=== PATIENT | female | born 1990 | race Caucasian/White ===

== ENCOUNTER → 2016-09-04 | Outpatient (CLI) | payer BC ==
[2016-09-04 16:40] LABS: ABSOLUTE BASOPHILS # (AUTO) 0.1 10^3/uL (0.0-0.2); ABSOLUTE EOSINOPHILS # (AUTO) 0.1 10^3/uL (0.0-0.6); ABSOLUTE LYMPHOCYTES (AUTO) 1.8 10^3/uL (0.5-4.7); ABSOLUTE MONOCYTES (AUTO) 0.5 10^3/uL (0.1-1.4); ABSOLUTE NEUT (AUTO) 12.7 10^3/uL (1.7-8.2); BASOPHILS % (AUTO) 0.4 % (0-2); EOSINOPHILS % (AUTO) 0.5 % (0-6); HEMATOCRIT 40.5 % (36.0-47.0); HEMOGLOBIN 13.7 g/dL (12.0-15.5); HGB HCT DIFFERENCE 0.6; LYMPHOCYTES % (AUTO) 12.2 % (13-45); MEAN CORPUSCULAR HEMOGLOBIN 29.3 pg (27.0-33.4); MEAN CORPUSCULAR VOLUME 86 fl (80-97); RED BLOOD COUNT 4.68 10^6/uL (3.72-5.28); RED CELL DISTRIBUTION WIDTH 12.6 % (11.5-14.0); SEGMENTED NEUTROPHILS % (AUTO) 83.9 % (42-78); WHITE BLOOD COUNT 15.1 10^3/uL (4.0-10.5)
[2016-09-04 16:54] LABS: HIV (1 AND 2) ANTIBODY NEGATIVE (NEGATIVE)
[2016-09-06 10:38] LABS: HEPATITIS C VIRUS AB <0.1 s/co ratio (0.0-0.9)
[2016-09-08 18:36] LABS: CHLAMYDIA PREQUOT NAA Negative (Negative)
[2016-09-09 07:13] LABS: GONOCOCCUS PREQUOT (CYTO) NAA Negative (Negative)
[2016-09-09 16:38] LABS: HGB A 96.3 % (94.0-98.0); HGB A2 2.1 % (0.7-3.1); HGB SOLUBILITY RESULT Negative (Negative)
== END ==
LOC: OD 14:29
PROVIDERS: ATTEND Midwife
DX: Z34.81 Encounter for supervision of other normal pregnancy, first trimester (principal); Z13.29 Encounter for screening for other suspected endocrine disorder; Z13.0 Encounter for screening for diseases of the blood and blood-forming organs and certain disorders involving the immune mechanism; Z11.3 Encounter for screening for infections with a predominantly sexual mode of transmission; Z12.4 Encounter for screening for malignant neoplasm of cervix
CPT/HCPCS: 36415; 83020; 84443; 85025; 86592; 86701; 86704; 86705; 86706; 86707; 86762; 86803; 86850; 86900; 86901; 87086; 87340; 87350; 87491; 87591; 88142

== ENCOUNTER → 2016-10-16 | Outpatient (CLI) | payer BC ==
[2016-10-16 14:28] LABS: THYROID STIMULATING HORMONE 1.91 uIU/mL (0.47-4.68)
[2016-10-18 14:40] LABS: DSR (BY AGE) 1 IN 898 (.); DSR (SECOND TRIMESTER) 1 IN 5535 (.); HCG MOM 1 1.03 (.); HCG VALUE 1 34012 mIU/mL (.); INSULIN DEPENDENT DIABETES No (.); OSBR RISK (1 IN) 1309 (.); T18RISK Not increased (.); UE3 MOM AFP 1.02 (.); UE3 VALUE AFP 0.99 ng/mL (.)
[2016-10-19 07:19] LABS: GESTATIONAL AGE BASED ON. EDD (.)
== END ==
LOC: OD 11:25
PROVIDERS: ATTEND Midwife
DX: Z36 Encounter for antenatal screening of mother (principal); Z13.29 Encounter for screening for other suspected endocrine disorder
CPT/HCPCS: 36415; 82105; 82677; 84439; 84443; 84702; 86336

== ENCOUNTER → 2017-01-09 | Outpatient (CLI) | payer BC ==
[2017-01-09 10:22] LABS: ADD HIVPANEL? NO; HIV (1 AND 2) ANTIBODY NEGATIVE (NEGATIVE)
== END ==
LOC: OD 08:19
PROVIDERS: ATTEND Midwife
DX: Z34.83 Encounter for supervision of other normal pregnancy, third trimester (principal); Z11.59 Encounter for screening for other viral diseases; Z11.3 Encounter for screening for infections with a predominantly sexual mode of transmission; Z11.4 Encounter for screening for human immunodeficiency virus [HIV]
CPT/HCPCS: 36415; 86592; 86701

== ENCOUNTER 2017-03-21 00:12 | Inpatient (IN) | payer BC ==
[2017-03-21] MEDS ORDERED: MISOPROSTOL 0.2 MG TABLET ONE (00:38)
[2017-03-21] MEDS ORDERED: LIDOCAINE 1% INJ-PF (10 MG/ML) 30 ML SDV ONE (00:38)
[2017-03-21] MEDS ORDERED: EPHEDRINE SULFATE INJ 50 MG/1 ML AMPULE ONE (00:38)
[2017-03-21] MEDS ORDERED: FENTANYL/BUPIVACAINE/NS/PF 200 MCG/100 ML RTUINJ EPI ONE (00:38)
[2017-03-21] MEDS ORDERED: BUPIVACAINE HCL 0.25 % INJ/PF (2.5 MG/1 ML) 30 ML VIAL ONE (00:39)
[2017-03-21] MEDS ORDERED: OXYTOCIN/NORMAL SALINE 20 UNIT/1,000 ML RTUINJ ONE (00:39)
[2017-03-21] MEDS ORDERED: PENICILLIN G-K 5 MILLION UNIT VIAL ONE (00:39)
[2017-03-21] MEDS ORDERED: RINGERS SOLUTION,LACTATED 1,000 ML IV ONE (00:40)
[2017-03-21] MEDS ORDERED: PENICILLIN G POTASSIUM 5,000,000 UNIT in DEXTROSE 5%-WATER 100 ML IV ONE (00:40)
[2017-03-21] MEDS ORDERED: RINGERS SOLUTION,LACTATED 1,000 ML IV PRN (00:40)
[2017-03-21 01:18] LABS: APPEARANCE,URINE SLIGHTLY-CLOUDY; BILIRUBIN,URINE NEGATIVE (NEGATIVE); GLUCOSE, URINE NEGATIVE (NEGATIVE); KETONES,URINE NEGATIVE (NEGATIVE); LEUKOCYTE ESTERASE,URINE TRACE (NEGATIVE); NITRITE,URINE NEGATIVE (NEGATIVE); PROTEIN,URINE NEGATIVE (NEGATIVE); URINE SPECIFIC GRAVITY 1.016; UROBILINOGEN,URINE NEGATIVE mg/dL (<2.0)
[2017-03-21 01:19] LABS: ABSOLUTE BASOPHILS # (AUTO) 0.1 10^3/uL (0.0-0.2); ABSOLUTE MONOCYTES (AUTO) 0.7 10^3/uL (0.1-1.4); ABSOLUTE NEUT (AUTO) 10.7 10^3/uL (1.7-8.2); BASOPHILS % (AUTO) 0.8 % (0-2); EOSINOPHILS % (AUTO) 0.3 % (0-6); HEMATOCRIT 34.2 % (36.0-47.0); HEMOGLOBIN 11.2 g/dL (12.0-15.5); HGB HCT DIFFERENCE -0.6; LYMPHOCYTES % (AUTO) 20.5 % (13-45); MEAN CORPUSCULAR HEMOGLOBIN 24.4 pg (27.0-33.4); MEAN CORPUSCULAR HGB CONC 32.6 g/dL (32.0-36.0); MEAN CORPUSCULAR VOLUME 75 fl (80-97); MONOCYTES % (AUTO) 4.6 % (3-13); RED BLOOD COUNT 4.57 10^6/uL (3.72-5.28); SEGMENTED NEUTROPHILS % (AUTO) 73.8 % (42-78); WHITE BLOOD COUNT 14.4 10^3/uL (4.0-10.5)
[2017-03-21 02:47] LABS: URINE BARBITURATES SCREEN NEGATIVE; URINE METHADONE SCREEN NEGATIVE; URINE OPIATES LOW NEGATIVE; URINE PHENCYCLIDINE SCREEN NEGATIVE
--- NOTE | 2017-03-21 03:09 | L&D Progress Notes ---
PROGRESS NOTES Datetime Report Generated by CPN: 03/21/2017 03:08 PROGRESS NOTE Impression: Normal Progression of Labor Procedures: Artificial ROM; Sterile Vag Exam Plan: Continue Present Management Informed Consent Obtained: Vaginal Delivery Vital Signs : Reviewed; Within Normal Limits Comment: Pt feeling some rectal pressure 9.5/100/0 bbow AROM clear s/p dose # 1 pcn Anticipate VAGINAL EXAM Dilatation: 9 Dilatation: 5 Effacement: 100 Effacement: 100 Station: 0 Station: -1 Contractions: 2-4 Contractions: 2-4 MEMBRANES Membranes: Ruptured Membranes: Intact Amniotic Fluid Color: Clear FETUS A FHR - Baseline: 135 Monitoring: External US Variability: Moderate 6-25bpm Accelerations: 15X15 Decelerations: None FHR Category: Category I Estimated Weight (gm): 3800 Presentation: Vertex SIGNATURE SIGNATURE: [id number] Assignment: Ambrose Jacobs DO Signature: with User ID: [email or web address] : with User ID: Jennifer
[2017-03-21] MEDS ORDERED: OXYTOCIN/NORMAL SALINE 1,000 ML IV PRN (04:07)
[2017-03-21] MEDS ORDERED: MEASLES,MUMPS&RUBELLA VACC/PF 0.5 ML VIAL SUBCUT PRN (04:07)
[2017-03-21] MEDS ORDERED: DIPH/PERTUSS(ACELL)/TETANUS VAC/PF 0.5 ML SYR (>=10YO) IM PRN (04:07)
[2017-03-21] MEDS ORDERED: DIBUCAINE 1% OINTMENT 28 GM TP PRN (04:07)
[2017-03-21] MEDS ORDERED: ACETAMINOPHEN WITH CODEINE #3 TABLET PO PRN (04:07)
[2017-03-21] MEDS ORDERED: ZOLPIDEM TARTRATE 5 MG TABLET PO PRN (04:07)
[2017-03-21] MEDS ORDERED: BENZOCAINE/MENTHOL AEROSOL SPRAY 56 ML TOP PRN (04:07)
[2017-03-21] MEDS ORDERED: PENICILLIN G POTASSIUM 2,500,000 UNIT in DEXTROSE 5%-WATER 50 ML IV SCH (05:00)
--- NOTE | 2017-03-21 05:27 | Delivery Summary ---
Del Sum A-C Datetime Report Generated by CPN: 03/21/2017 05:26 DELIVERY PERSONNEL DELIVERY PERSONNEL: [id number] Delivery Doctor:: Juju Samuels CNM Labor and Delivery Nurse:: Deanne Vera RNliner helper Nurse:: Eli Baez RN Transmission Inspector/COOLING TOWER TECHNICIAN: Sendy Ortega CNA MATERNAL INFORMATION Delivery Anesthesia: Epidural Medications After Delivery: Pitocin Drip 20 Units/1000ml NSS Estimated Blood Loss (ml): 300 Maternal Complications: None Provider Comments: of viable male over intact perineum, head delivered without difficulty, shoulders and body followed with ease. Infant with spontaneous cry and respirations to maternal abdoemn, cord clamped X 2, cut free by pts after 2 minute delay. Spontaneous delivery of placenta via lizzy mechanism, appears intact, 3 VC. Vagina and perineum inspected, no lacerations noted, hemostasis acheived with external fundal massage and IV pitocin, mother and in stable conditon, routine pp care. LABOR SUMMARY EDC: 03/29/2017 00:00 No. Babies in Womb: 1 Attempted: No Labor Anesthesia: Epidural LABOR INFORMATION Reason for Induction: Not Applicable Onset of Labor: 03/21/2017 00:30 Complete Dilatation: 03/21/2017 03:36 Oxytocin: N/A Group B Beta Strep: positive Antibiotics # of Doses: 1 Antibiotics Time of Last Dose: 005 Name of Antibiotic Given: PCN Steroids Given: None Reason Steroids Not Administered: Not Applicable MEMBRANES Membranes Rupture Method: Artificial Rupture of Membranes: 03/21/2017 03:00 Length of Rupture (hr): 0.93 Amniotic Fluid Color: Clear Amniotic Fluid Amount: Small STAGES OF LABOR Stage 1 hr: 3 Stage 1 min: 6 Stage 2 hr: 0 Stage 2 min: 20 Stage 3 hr: 0 Stage 3 min: 4 Total Time in Labor hr: 3 Total Time in Labor min: 30 VAGINAL DELIVERY Episiotomy: None Laceration Extension: N/A Laceration Type: None Laceration Repair: Not Applicable Laceration Repair Note: n/a Sponge Count Correct: Vaginal Sweep Performed Sharps Count Correct: Yes CSECTION DELIVERY Primary Indication: N/A Secondary Indication: N/A CSection Incidence: N/A Labor: N/A Elective: N/A CSection Incision: N/A BABY A INFORMATION Delivery Date/Time: 03/21/2017 03:56 Method of Delivery: Vaginal Born in Route : No : N/A Forceps: N/A Vacuum Extraction: N/A Shoulder Dystocia : No PRESENTATION/POSITION BABY A Presentation: Cephalic Cephalic Presentation: Vertex Vertex Position: Right Occipital Anterior Breech Presentation: N/A PLACENTA INFORMATION BABY A Placenta Delivery Time : 03/21/2017 04:00 Placenta Method of Delivery: Spontaneous Placenta Status: Delivered SCORES BABY A Heart Rate 1 min: >100 bpm Resp Effort 1 min: Good Cry Reflex Irritability 1 min: Cough or Sneeze or Pulls Away Muscle Tone 1 min: Active Motion Color 1 min: Body [place], Extremities Blue Resuscitation Effort 1 min: N/A SCORE 1 MIN: 9 Heart Rate 5 min: >100 bpm Resp Effort 5 min: Good Cry Reflex Irritability 5 min: Cough or Sneeze or Pulls Away Muscle Tone 5 min: Active Motion Color 5 min: Body [place], Extremities Blue Resuscitation Effort 5 min: N/A SCORE 5 MIN: 9 INFANT INFORMATION BABY A Gestational Age at Delivery: 38.6 Gestational Status: Early Term- 37- 38.6 Weeks Infant Outcome : Liveborn Condition : Stable Sex: Male IDENTIFICATION BABY A Verification Date/Time: 03/21/2017 04:06 ID Band Number: [id number] Mother's Name Verified: Yes RN Verifying : Camilo Farfan RN Additional Verifying Personnel: [employer] RN WEIGHT/LENGTH BABY A Infant Birthweight (gm): 3250 Weight (lb): 7 Weight (oz): 3 Infant Length (in): 19.00 Length (cm): 48.26 CORD INFORMATION BABY A No. Cord Vessels: 3 Nuchal Cord : N/A Nuchal Cord- Other: R compound hand Cord Blood Taken: Yes-For Storage (Mom's Blood type +) Suction: Mouth; Nose ASSESSMENT BABY A Complications: None Physical Findings at Delivery: Within Normal Limits Infant Respirations: Appears Normal Skin to Skin: Yes Skin to Skin Time (min): 30 Counterintelligence Analyst/ALS Called : No Care By: Becky Baez RN Transferred To: Remains with Mother BABY B INFORMATION : N/A SIGNATURES Assignment: Ambrose Jacobs DO Signature: with User ID: Jennifer : with User ID: Jennifer
[2017-03-21] MEDS: IBUPROFEN 800 MG TABLET PO SCH ×3 (05:32→21:53)
[2017-03-21] MEDS ORDERED: IBUPROFEN 800 MG TABLET ONE (05:47)
--- NOTE | 2017-03-21 06:28 | Admission Physical ---
Datetime Report Generated by CPN: 03/21/2017 06:28 CURRENT ADMISSION Hx Assessment: The History has been Reviewed and is Current Chief Complaint: Uterine Contractions Indication for Induction: Not Applicable Admit Plan: Admit to Unit; Initiate Labor Protocol ALLERGIES Medication Allergies: No Medication Allergies: No Known Allergies (03/21/2017) Medication Allergies: No Known Allergies (02/28/2015) Latex: No Latex Allergies Food Allergies: none Environmental Allergies: seasonal OBSTETRICAL HISTORY EDC: 03/29/2017 00:00 : 4 Para: 1 Term: 1 : 0 SAB: 1 IAB: 1 Ectopic: 0 Livin Cesareans: 0 VBACs: 0 Multiple Births: 0 Gestational Diabetes: No Rh Sensitization: No Incompetent Cervix: No CANDI: No Infertility: No ART Treatment: No Uterine Anomaly: No IUGR: No Hx Previous C/S: No Macrosomia: No Hx Loss/Stillborn: No PIH: No Hx : No Placenta Previa/Abruption: No Depression/PP Depression: Yes PTL/PROM: No Post Hemorrhage: No Obstetrical History Comments: G1- 2010 elective AB; D_C G2- 2013 G3- SAB, blood transfusion G4- current SEE RECORDS Alcohol: No Marijuana : No Cocaine: No Other Illicit Drugs: No Cigarettes: Never Smoker. 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 Surgery: No Heart Disease: No Hosp/Surgery: No Autoimmune Disorder: No Anesthetic Complications: No Kidney Disease: No Abnormal Pap Smear: No Neuro/Epilepsy: No Psychiatric Disorders: Yes Other Medical Diseases: No Hepatitis/Liver Disease: No Significant Family History: No Varicosities/Phlebitis: No Trauma/Violence : No Thyroid Dysfunction: No Medical History Comments: surgery- cyst removal from under tongue age 8; wisdom teeth 2008; D_C hx anxiety/ depression blood transfusion with SAB cold sores- valtrex INFECTIOUS HISTORY Gonorrhea: No Genital Herpes: No Chlamydia: No Tuberculosis: No Syphilis: No Hepatitis: No HIV/AIDS Exposure: No Rash or Viral Illness: No HPV: No PHYSICAL EXAM General: Normal HEENT: Normal Neurologic: Normal Thyroid: Deferred Heart: Normal Lungs: Normal Breast: Normal Back: Normal Abdomen: Normal Genitourinary Exam: Normal Extremities: Normal DTRs: Normal Pelvic Type: Adequate Physical Exam Comments: pelvis proven 7 lbs 2oz Vital Signs: Reviewed VAGINAL EXAM Dilatation: 9 Dilatation: 5 Effacement: 100 Effacement: 100 Station: 0 Station: -1 Contraction Comments: 2-4 Contraction Comments: 2-4 MEMBRANES Membranes: Ruptured Membranes: Intact Amniotic Fluid Color: Clear FETUS A EGA: 38.6 Monitoring: External US FHR- Baseline: 140 Variability: Moderate 6-25bpm Accelerations: 15X15 Decelerations: None FHR Category: Category I Estimated Weight (gm): 3800 Presentation: Vertex Admit Comment: Labor, denies leaking, bleeding, states active baby. Admit to L _ D GBS+ , pcn May have epidural prn Anticipate PLANS FOR LABOR AND DELIVERY Labor and Delivery: None Pain Management: Epidural Feeding Preference: Breast Benefit of Breast Feed Discussed: Yes Circumcision: Yes INFORMED CONSENT Informed Consent Obtained: Vaginal Delivery Assignment: Ambrose Jacobs DO Signature: with User ID: Jennifer : with User ID: Jennifer
[2017-03-21] MEDS: FERROUS SULFATE 325 MG TABLET PO SCH ×2 (09:39→18:26)
[2017-03-21] MEDS: DOCUSATE SODIUM 100 MG CAPSULE PO SCH ×2 (09:39→18:27)
[2017-03-21] MEDS: SENNOSIDES/DOCUSATE 8.6-50 MG 1 EACH TABLET PO SCH (09:39)
[2017-03-21] MEDS: PRENATAL VITAMIN W-O CA NO5/FE FUMARATE/FA CAPSULE PO SCH (09:39)
--- NOTE | 2017-03-21 09:42 | PDOC PROGRESS REPORT ---
Subjective-OB Subjective: Post Delivery Day: 26 year old. Denies any needs at this time Holding baby, doing well, scant bleeding, voiding, eating well Physical Exam (OB) Vital Signs: Temp Pulse Resp BP Pulse Ox 98.6 F 103 H 20 139/74 H 99 03/21/17 06:22 03/21/17 06:22 03/21/17 06:22 03/21/17 06:22 03/21/17 06:22 Intake & Output 03/20/17 03/21/17 03/22/17 06:59 06:59 06:59 Weight 89.6 kg - PIH/Pre-Eclampsia DTR's: 2 + Clonus: Negative Headache: Absent Epigastric Pain: No Visual Changes: No - Lochia Lochia Amount: Small 10-25 ml Lochia Color: Rubra/Red - Abdomen Description: Soft, Round Hernia Present: No Fundal Description: Firm Fundal Height: u/u - u/2 Objective-Diagnostic Laboratory: 03/21/17 00:58 03/21/17 03/21/17 03/21/17 00:25 00:58 00:58 WBC 14.4 H RBC 4.57 Hgb 11.2 L Hct 34.2 L MCV 75 L MCH 24.4 L MCHC 32.6 RDW 15.0 H Plt Count 257 Seg Neutrophils % 73.8 Lymphocytes % 20.5 Monocytes % 4.6 Eosinophils % 0.3 Basophils % 0.8 Absolute Neutrophils 10.7 H Absolute Lymphocytes 3.0 Absolute Monocytes 0.7 Absolute Eosinophils 0.0 Absolute Basophils 0.1 Urine Color YELLOW Urine Appearance SLIGHTLY-CLOUDY Urine pH 6.0 Ur Specific [place] 1.016 Urine Protein NEGATIVE Urine Glucose (UA) NEGATIVE Urine Ketones NEGATIVE Urine Blood NEGATIVE Urine Nitrite NEGATIVE Ur Leukocyte Esterase TRACE H Blood Type A POSITIVE Antibody Screen NEGATIVE Assessment and Plan(PN) - Assessment and Plan (1) Vaginal delivery Is this a current diagnosis for this admission?: Yes - Time Spent with Patient Time with patient: Less than 15 minutes Medications reviewed and adjusted accordingly: Yes - Disposition Anticipated Discharge: Home Within: within 48 hours
[2017-03-21] MEDS: ACETAMINOPHEN WITH CODEINE #3 TABLET PO PRN (21:52)
[2017-03-22] MEDS: IBUPROFEN 800 MG TABLET PO SCH ×3 (05:48→21:49)
[2017-03-22 06:58] LABS: HEMATOCRIT 31.2 % (36.0-47.0); HEMOGLOBIN 10.2 g/dL (12.0-15.5); HGB HCT DIFFERENCE -0.6; MEAN CORPUSCULAR HEMOGLOBIN 24.7 pg (27.0-33.4); MEAN CORPUSCULAR HGB CONC 32.7 g/dL (32.0-36.0); MEAN CORPUSCULAR VOLUME 76 fl (80-97); RED BLOOD COUNT 4.12 10^6/uL (3.72-5.28); RED CELL DISTRIBUTION WIDTH 15.3 % (11.5-14.0); WHITE BLOOD COUNT 15.7 10^3/uL (4.0-10.5)
--- NOTE | 2017-03-22 09:47 | PDOC PROGRESS REPORT ---
Subjective-OB Subjective: Post Delivery Day: 26 year old. Denies any needs at this time Doing well, no c/o, breast feeding, voiding, scant lochia Physical Exam (OB) Vital Signs: Temp Pulse Resp BP Pulse Ox 97.9 F 89 16 109/59 L 99 03/22/17 08:08 03/22/17 08:08 03/22/17 08:08 03/22/17 08:08 03/22/17 08:08 Intake & Output 03/21/17 03/22/17 03/23/17 06:59 06:59 06:59 Intake Total 100 Balance 100 Weight 89.6 kg - PIH/Pre-Eclampsia DTR's: 2 + Clonus: Negative Headache: Absent Epigastric Pain: No Visual Changes: No - Lochia Lochia Amount: Small 10-25 ml Lochia Color: Rubra/Red - Abdomen Description: Soft, Round Hernia Present: No Fundal Description: Firm Fundal Height: u/u - u/2 Objective-Diagnostic Laboratory: 03/22/17 06:46 03/22/17 06:46 WBC 15.7 H RBC 4.12 Hgb 10.2 L Hct 31.2 L MCV 76 L MCH 24.7 L MCHC 32.7 RDW 15.3 H Plt Count 224 Assessment and Plan(PN) - Assessment and Plan (1) Vaginal delivery Is this a current diagnosis for this admission?: Yes - Time Spent with Patient Time with patient: Less than 15 minutes Medications reviewed and adjusted accordingly: Yes - Disposition Anticipated Discharge: Home Within: within 24 hours
[2017-03-22] MEDS: DOCUSATE SODIUM 100 MG CAPSULE PO SCH ×2 (10:19→17:11)
[2017-03-22] MEDS: FERROUS SULFATE 325 MG TABLET PO SCH ×2 (10:19→17:11)
[2017-03-22] MEDS: PRENATAL VITAMIN W-O CA NO5/FE FUMARATE/FA CAPSULE PO SCH (10:19)
[2017-03-22] MEDS: SENNOSIDES/DOCUSATE 8.6-50 MG 1 EACH TABLET PO SCH (10:19)
[2017-03-23] MEDS: ACETAMINOPHEN WITH CODEINE #3 TABLET PO PRN (00:16)
[2017-03-23] MEDS: IBUPROFEN 800 MG TABLET PO SCH (05:34)
[2017-03-23 08:18] VITALS: BP 128/75
[2017-03-23] MEDS: DOCUSATE SODIUM 100 MG CAPSULE PO SCH (10:42)
[2017-03-23] MEDS: FERROUS SULFATE 325 MG TABLET PO SCH (10:43)
[2017-03-23] MEDS: SENNOSIDES/DOCUSATE 8.6-50 MG 1 EACH TABLET PO SCH (10:44)
[2017-03-23] MEDS: PRENATAL VITAMIN W-O CA NO5/FE FUMARATE/FA CAPSULE PO SCH (10:44)
--- NOTE | 2017-03-23 10:55 | PDOC PROGRESS REPORT ---
Subjective-OB Subjective: Post Delivery Day: 26 year old. Denies any needs at this time Doing well, ready to go home, scant bleeding, wants Rx for breast pump, breast feeding Physical Exam (OB) Vital Signs: Temp Pulse Resp BP Pulse Ox 98.5 F 98 14 128/75 H 100 03/23/17 07:54 03/23/17 07:54 03/23/17 07:54 03/23/17 07:54 03/23/17 07:54 Intake & Output 03/22/17 03/23/17 03/24/17 06:59 06:59 06:59 Intake Total 100 360 Balance 100 360 - PIH/Pre-Eclampsia DTR's: 2 + Clonus: Negative Headache: Absent Epigastric Pain: No Visual Changes: No - Lochia Lochia Amount: Small 10-25 ml Lochia Color: Rubra/Red - Abdomen Description: Soft, Round Hernia Present: No Fundal Description: Firm, Midline Fundal Height: u/u - u/2 Objective-Diagnostic Laboratory: 03/22/17 06:46 Assessment and Plan(PN) - Assessment and Plan (1) Vaginal delivery Is this a current diagnosis for this admission?: Yes - Time Spent with Patient Time with patient: Less than 15 minutes Medications reviewed and adjusted accordingly: Yes - Disposition Anticipated Discharge: Home Within: Other - home today
--- NOTE | 2017-03-23 10:57 | PDOC DISCHARGE SUMMARY ---
Final Diagnosis Discharge Date: 03/23/17 - Final Diagnosis (1) Vaginal delivery Is this a current diagnosis for this admission?: Yes Discharge Data - Discharge Medication Home Medications: Vit#96/Ferrous Fum/FA [ Tablet] 1 each PO DAILY 12/21/13 Ibuprofen [Motrin 800 mg Tablet] 800 mg PO Q8 #60 tablet 03/23/17 Gestational Age: 38.6 Reason(s) for Admission: Onset of Labor, Group B Strep Positive Procedures: NST, Ultrasound Intrapartum Procedure(s): Spontaneous Vaginal Delivery - Data Baby 1 Male at 1 minute: 9 at 5 minutes: 9 Weight: 3.26 kg Home with Mother: Yes Complications: No - Diagnosis Test Laboratory: Temp Pulse Resp BP Pulse Ox 98.5 F 98 14 128/75 H 100 03/23/17 07:54 03/23/17 07:54 03/23/17 07:54 03/23/17 07:54 03/23/17 07:54 03/21/17 03/21/17 03/22/17 00:25 00:58 06:46 RBC 4.57 4.12 Hgb 11.2 L 10.2 L Hct 34.2 L 31.2 L Urine Opiates Screen NEGATIVE - Discharge information/Instructions Discharge Activity: Activity As Tolerated, Pelvic Rest, No tub bath Discharge Diet: As Tolerated Disposition: HOME, SELF-CARE Follow up with: [facility] in: 4, Weeks
== END 2017-03-23 12:13 | disposition home or self-care (01) | DRG 774 ==
LOC: ER 00:12 → LR 00:32 → 2S 06:06
PROVIDERS: ADMIT Obstetrics & Gynecology; ATTEND Obstetrics & Gynecology
PROC: 10E0XZZ Delivery of Products of Conception, External Approach (ICD-10-PCS; principal; 2017-03-21)
PROC: 4A1HXCZ Monitoring of Products of Conception, Cardiac Rate, External Approach (ICD-10-PCS; 2017-03-21)
DX: O99.824 Streptococcus B carrier state complicating childbirth (principal); O98.52 Other viral diseases complicating childbirth; O32.6XX0 Maternal care for compound presentation, not applicable or unspecified; B00.9 Herpesviral infection, unspecified; Z37.0 Single live birth; Z3A.38 38 weeks gestation of pregnancy; Z79.899 Other long term (current) drug therapy
CPT/HCPCS: 36415; 80307; 81005; 85025; 85027; 86592; 86850; 86900; 86901; 94760; J2540; J2590; J3490

== ENCOUNTER → 2020-08-23 | Outpatient (CLI) | payer BC ==
[~2020-08-23] MED LIST: COVID-19 VACCINE (PFIZER)/PF 30 MCG/0.3 ML VIAL IM ONE; EPINEPHRINE INJ/PF 1 MG/1 ML AMPULE IM PRN
== END ==
LOC: EMPHEALTH 08:15
PROVIDERS: ATTEND Internal Medicine
DX: Z23 Encounter for immunization (principal)
CPT/HCPCS: 91300

== ENCOUNTER → 2020-09-13 | Outpatient (CLI) | payer BC | LOC: EMPHEALTH 12:58 | PROVIDERS: ATTEND Internal Medicine | DX: Z23 Encounter for immunization (principal) | CPT/HCPCS: 91300 ==